=== PATIENT | female | born 1990 | race Caucasian/White ===

== ENCOUNTER 2017-02-21 12:59 | Emergency (ER) | payer OTHER ==
[~2017-02-21] VITALS: Ht 162.6 cm; Wt 81.8 kg
[~2017-02-21 12:59] MED LIST: MOTRIN 600600 MG/TAB PO
[2017-02-21 13:01] VITALS: TEMP 98.6
[2017-02-21 14:35] VITALS: BP 135/82; PULSE 75
== END 2017-02-21 14:35 | disposition home or self-care (01) ==
LOC: COL.ER 12:59
DX: R04.0 Epistaxis (principal)

== ENCOUNTER 2018-02-20 17:25 | Emergency (ER) | payer OTHER ==
[~2018-02-20] VITALS: Ht 162.6 cm; Wt 59.1 kg
[2018-02-20 17:31] VITALS: BP 141/90; TEMP 98.7
[2018-02-20] MEDS ORDERED: IMITREX100 MG PO (18:34)
[2018-02-20 18:54] LABS: BASO % 0.3 % (0.0-2.0); EOS # 0.1 (0.0-0.7); HEMATOCRIT 42.6 % (37.0-47.0); HEMOGLOBIN 14.4 g/dl (12.5-16.0); LYMPH % 22.3 % (20.0-51.0); MEAN CELL VOLUME 84 fl (80.0-100.0); MEAN CORPUSCULAR HEMOGLOBIN 28 pg (27.0-31.0); MEAN CORPUSCULAR HGB CONC 34 g/dl (33.0-37.0); MEAN PLATELET VOLUME 9.2 fl (7.4-10.4); MONO # 0.7 (0.1-0.6); MONO % 8.2 % (1.7-9.3); PLATELET COUNT 364 K/mm3 (130-400); RED BLOOD COUNT 5.07 M/mm3 (4.10-5.30); REDCELL DISTRIBUTION WIDTH-CV 12.5 % (11.5-14.5)
[2018-02-20 19:06] LABS: ALBUMIN 4.7 gm/dL (3.5-5.0); BILIRUBIN,TOTAL 0.4 mg/dL (0.0-1.0); C-REACTIVE PROTEIN 0.6 mg/dL (0.0-0.9); CALCIUM 9.8 mg/dL (8.4-10.2); CREATININE, serum 0.66 mg/dL (0.52-1.25); POTASSIUM 3.8 mmol/L (3.4-5.0); TOTAL PROTEIN 8.7 gm/dL (6.4-8.2)
[2018-02-20 19:13] LABS: COLLECTION METHOD CLEAN CATCH
[2018-02-20 19:27] LABS: PH 5 (5-8); URINE APPEARANCE Hazy; URINE BACTERIA Rare /hpf; URINE BILIRUBIN Negative (NEGATIVE); URINE BLOOD 1+ (NEGATIVE); URINE COLOR Yellow; URINE GLUCOSE Negative (NEGATIVE); URINE KETONE Negative (NEGATIVE); URINE LEUKOCYTE ESTERASE 1+ (NEGATIVE); URINE NITRATE Negative (NEGATIVE); URINE PROTEIN(semi-quant) Negative (NEGATIVE); URINE RBC 0-2 /hpf; URINE UROBILINOGEN Negative (NEGATIVE)
[2018-02-20] MEDS ORDERED: OMNICEF 300MG300 MG PO (19:47)
[2018-02-20] MEDS ORDERED: ZOFRAN ODT4 MG PO (19:47)
[2018-02-20 19:56] VITALS: PULSE 90
== END 2018-02-20 19:56 | disposition home or self-care (01) ==
LOC: COL.ER 17:25
PROVIDERS: Physician Assistant
DX: N39.0 Urinary tract infection, site not specified (principal); J02.9 Acute pharyngitis, unspecified; F41.9 Anxiety disorder, unspecified; F43.10 Post-traumatic stress disorder, unspecified

== ENCOUNTER → 2021-02-24 | Outpatient (CLI) | payer BC ==
[~2021-02-24] MED LIST changes: +IMITREX100 MG PO; +OMNICEF 300MG300 MG PO; +ZOFRAN ODT4 MG PO
== END ==
LOC: COL.RAD 13:03
DX: M54.41 Lumbago with sciatica, right side (principal)